=== PATIENT | female | born 1945 | race Caucasian/White ===

== ENCOUNTER → 2016-05-27 11:49 | Outpatient (CLI) | payer MEDICARE, OTHER ==
[2015-11-14 10:04] VITALS: BMI 35.5
[~2016-05-27 11:49] MED LIST: CALCIUM 600+D T1 TA1 PO; CO Q-10100 MG PO; GLUCOPHAGE1000 MG PO; LOTENSIN20 MG PO; LOTREL 10/20 CA1 CAP PO; PRAVACHOL40 MG PO; TOPROL XL100 MG PO
== END | disposition home or self-care (01) ==
LOC: D.CT 11:49
DX: R19.09 Other intra-abdominal and pelvic swelling, mass and lump (principal); R91.8 Other nonspecific abnormal finding of lung field

== ENCOUNTER 2016-07-05 05:07 | Day surgery (SDC) | payer MEDICARE, OTHER ==
[2016-07-03 09:57] LABS: HEMATOCRIT 43.4 % (36.0-48.0); HEMOGLOBIN 13.8 g/dL (12-16); MCH 27.2 pg (26.0-34.0); MCHC 31.8 g/dL (31.0-37.0); MCV 85.4 fL (80.0-100.0); MEAN PLATELET VOLUME 9.2 fL (7.4-10.4); RBC 5.08 10x6/uL (4.00-5.40); RDW 15.6 % (11.5-14.5); WBC 9.6 10x3/uL (4.8-10.8)
[2016-07-03 10:24] LABS: CALC OSMOLALITY 289 mosm/kg (275-300); CALCIUM 9.3 mg/dL (8.5-10.1); CHLORIDE - SERUM 104 mmol/L (98-107); CREATININE - SERUM 0.8 mg/dL (0.6-1.3); GLUCOSE 198 mg/dL (74-106); POTASSIUM - SERUM 3.9 mmol/L (3.5-5.1); SODIUM 142 mmol/L (136-145); UREA NITROGEN 15 mg/dL (7-18); eGFR NON AFRICAN AMERICAN 75 mL/min (90-120)
[~2016-07-05] VITALS: Ht 160 cm; Wt 89.4 kg
--- NOTE | ~2016-07-05 | OP ---
PATIENT NAME: CHILANGO ZAMUDIO MEDICAL RECORD: [id number] :45 LOCATION:D.OPS ADMISSION DATE: SURGEON: FABRICIO GUEVARA MD DATE OF OPERATION: 07/05/2016 PREOPERATIVE DIAGNOSIS: History of complex polyp of the rectum at 10 cm. POSTOPERATIVE DIAGNOSES: History of complex polyp of the rectum at 10 cm with significant regrowth of the polyp, it is now a 3.5 cm, somewhat pedunculated polyp. PROCEDURES: 1. Flexible proctoscopy. 2. Snare piecemeal polypectomy of the rectal polyp. 3. Cold endoscopic biopsies. 4. Ablation of the polypoid base with argon plasma minibus driver utilizing the right colon setting in the forced mode. 5. Submucosal endoscopic tattooing of tissue just adjacent to the polyps for easier identification in the future. ENDOSCOPIC COURSE: The patient was conveyed to the operating room electively on 07/05/2016. General anesthesia was induced by the anesthesia staff. The patient was placed in the Winn position. A digital rectal examination was performed. A colonoscope was inserted through the anus. It was easily advanced to the sigmoid colon. I withdrew to the polyp, which was easily identifiable. Multiple cold endoscopic biopsies were performed. I then advanced a snare. A piecemeal snare polypectomy was performed utilizing the cut setting and then the coag setting. This snare polypectomy removed about 80% of the polyp. Additional cold endoscopic biopsies were performed. I then utilized the argon plasma minibus driver to ablate any remaining polypoid tissue. The endoscopic clip was still identifiable and had not been dislodged since the patient's last endoscopy. For easier identification in the future, I advanced an endoscopic sclerotherapy needle and performed a submucosal injection of tissue just adjacent to the polypoid base. A total of 3 cc of Tamar ink was injected submucosally. The sclerotherapy needle was then removed. The endoscope was then removed. I will plan to see the patient in my office in 2-3 weeks. I will plan for her next colonoscopy with the argon plasma minibus driver to take place in 1 year. TRANSINT:[id number] Voice Confirmation ID: [id number] DOCUMENT ID: [id number] FABRICIO GUEVARA MD CC: FABRICIO DALTON DO [id number] DICTATION DATE: 07/05/16 0949 SCRUBBING MACHINE OPERATOR: 07/05/16 1948 [facility] 07/05/16 [facility] [address] [place] [address]
--- NOTE | ~2016-07-05 | HP ---
PATIENT: CHILANGO ZAMUDIO LUIS MEDICAL RECORD: [id number] ACCOUNT: [id number] LOCATION:UBALDO : 45 ADMISSION DATE: 07/05/16 HISTORY AND PHYSICAL EXAMINATION CHIEF COMPLAINT: Polyp. HISTORY OF PRESENT ILLNESS: The patient had a history of complex polyp in the rectum. It is complex due to its size and endoscopic appearance. Also, it is worrisome due to the fact that there was atypia present in the past and this was a low-grade atypia. I will plan for flexible proctoscopy with polypectomy and probably the patient will require ablation of a portion of the polyp with the argon plasma claim representative. The patient has no abdominal pain. No rectal bleeding. ALLERGIES: PENICILLIN AND PAXIL. HOME MEDICATIONS: Lotrel, Lotensin, glyburide, Glucophage, Toprol as well as Pravachol. PAST MEDICAL AND SURGICAL HISTORY: Hypertension, noninsulin-dependent diabetes mellitus, diet controlled, reflux, hypercholesterolemia. SOCIAL HISTORY: Nonsmoker. REVIEW OF SYSTEMS: Negative for CVA or seizures. Negative for renal disease or hepatitis. PHYSICAL EXAMINATION: GENERAL: The patient does not appear acutely ill. She does not appear chronically ill. VITAL SIGNS: Reviewed. HEAD: External ears appear normal. EYES: Extraocular movements are intact. NECK: Trachea is midline. CHEST: No intercostal retractions. PULMONARY: Nonlabored, no stridor. ABDOMEN: Nontender. IMPRESSION: History of complex polyp of the rectum. PLAN: Flexible proctoscopy. Polypectomy. Possible need for the argon plasma claim representative. TRANSINT:[id number] Voice Confirmation ID: [id number] DOCUMENT ID: [id number] HISTORY AND PHYSICAL [id number] CHILANGO ZAMUDOI ROBERT MD CC: FABRICIO DALTON DO [id number] DICTATION DATE: 07/05/16 0941 ROLLER MILL OPERATOR: 07/05/16 1557 [facility] 07/05/16 [facility] [address] [place] [id number]
[~2016-07-05 05:07] MED LIST changes: +GLYBURIDE5 M1 PO
[2016-07-05 07:08] VITALS: BP 176/76; Ht 160 cm; Wt 89.4 kg
== END 2016-07-05 11:20 | disposition home or self-care (01) ==
LOC: D.OPS 05:07 → D.PAN 08:00 → D.OPS 11:20
PROVIDERS: Anesthesiology
DX: K62.1 Rectal polyp (principal); I10 Essential (primary) hypertension; E11.9 Type 2 diabetes mellitus without complications; K21.9 Gastro-esophageal reflux disease without esophagitis; E78.00 Pure hypercholesterolemia, unspecified; Z88.0 Allergy status to penicillin; Z88.8 Allergy status to other drugs, medicaments and biological substances; Z79.84 Long term (current) use of oral hypoglycemic drugs; Z79.899 Other long term (current) drug therapy

== ENCOUNTER → 2016-12-02 08:28 | Outpatient (CLI) | payer MEDICARE, OTHER ==
[2016-07-05 07:08] VITALS: BMI 34.9
== END | disposition home or self-care (01) ==
LOC: D.CT 08:28
DX: R91.1 Solitary pulmonary nodule (principal)

== ENCOUNTER → 2017-01-20 14:38 | Outpatient (CLI) | payer MEDICARE, OTHER ==
[2016-07-05 07:08] VITALS: BMI 34.9
== END | disposition home or self-care (01) ==
LOC: D.MRI 14:38
DX: M25.361 Other instability, right knee (principal)

== ENCOUNTER 2017-10-01 07:55 | Day surgery (SDC) | payer MEDICARE, OTHER ==
[2017-09-29 11:56] LABS: HEMATOCRIT 41.2 % (36.0-48.0); HEMOGLOBIN 13.4 g/dL (12-16); MCHC 32.5 g/dL (31.0-37.0); MEAN PLATELET VOLUME 8.8 fL (7.4-10.4); RBC 4.79 10x6/uL (4.00-5.40); RDW 15.1 % (11.5-14.5); WBC 10.6 10x3/uL (4.8-10.8)
[2017-09-29 12:23] LABS: CALC OSMOLALITY 288 mosm/kg (275-300); CALCIUM 8.3 mg/dL (8.5-10.1); CARBON DIOXIDE 26.5 mmol/L (21.0-32.0); CHLORIDE - SERUM 107 mmol/L (98-107); CREATININE - SERUM 0.6 mg/dL (0.6-1.3); POTASSIUM - SERUM 3.8 mmol/L (3.5-5.1); SODIUM 144 mmol/L (136-145); UREA NITROGEN 15 mg/dL (7-18); eGFR NON AFRICAN AMERICAN > 90 mL/min (90-120)
[2017-09-29 12:30] LABS: GLUCOSE 121 mg/dL (74-106)
[~2017-10-01] VITALS: Ht 160 cm; Wt 87.5 kg
--- NOTE | ~2017-10-01 | OP ---
PATIENT NAME: CHILANGO ZAMUDIO MEDICAL RECORD: [id number] :45 LOCATION:D.OPS ADMISSION DATE: SURGEON: FABRICIO GUEVARA MD DATE OF OPERATION: 10/01/2017 PREOPERATIVE DIAGNOSIS: History of complex rectal polyp at 10 cm. POSTOPERATIVE DIAGNOSIS: History of complex rectal polyp at 10 cm with significant regrowth of the polyp. The regrowth measured 3.5 cm. PROCEDURE: Flexible proctoscopy with polypectomy utilizing endoscopic mucosal resection. SURGEON: Fabricio Guevara MD METAL PATTERN MAKER: None. BLOOD LOSS: Minimal. ANESTHESIA: General. COMPLICATIONS: None. The risks, possible complications, and alternatives to the procedure were explained to the patient. She elects to proceed. OPERATIVE COURSE: The patient was conveyed to the operating room electively on 10/01/2017. General anesthesia was induced by the anesthesia staff. The patient was placed in the Winn position. A digital rectal examination was performed. A colonoscope was inserted through the anus. It was easily advanced to the sigmoid colon. I slowly withdrew the endoscope. A combination of normal imaging and narrow band imaging were utilized. I identified the polyp. There had been significant regrowth. The tattoo was still present next to the polyp. I advanced a sclerotherapy needle. A submucosal injection underneath the polyp with epinephrine was performed. There was a good lift to the polyp. Utilizing an endoscopic snare, first with the coag setting and then with the cut setting a piecemeal snare polypectomy was performed. Portions of this polyp were grasped with endoscopic retrieval net and other portions were sucked out through the endoscope and into a polyp trap. I then performed some cold endoscopic biopsies at the base of the polyp. Essentially, about 95% of the polyp had been removed. The other 5% was ablated utilizing the argon plasma porter sample case with the right colon setting in the forced mode. The endoscope was then withdrawn under direct vision. I am going to dismiss the patient home on Flagyl as she is at risk for a post-polypectomy syndrome. I will plan for her next flexible proctoscopy with the argon plasma porter sample case to take place in 1 year. TRANSINT:[id number] Voice Confirmation ID: [id number] DOCUMENT ID: [id number] OPERATIVE REPORT [id number] CHILANGO ZAMUDIO ROBERT MD at 1240 CC: GELY DE LA TORRE MD, Laura HAIRSTON ROBERT [id number] DICTATION DATE: 10/01/17 1429 ASSOCIATE BROKER: 10/01/17 1518 [facility] 10/01/17 [id number] [place] [address]
[2017-10-01 11:04] VITALS: BP 165/80; Ht 160 cm; Wt 87.5 kg
== END 2017-10-01 15:00 | disposition home or self-care (01) ==
LOC: D.OPS 07:55 → D.PAN 10:15 → D.OPS 15:00
PROVIDERS: Anesthesiology
DX: D12.8 Benign neoplasm of rectum (principal); Z01.812 Encounter for preprocedural laboratory examination

== ENCOUNTER → 2017-11-21 07:21 | Outpatient (CLI) | payer MEDICARE, OTHER ==
[2017-10-01 11:04] VITALS: BMI 34.2
== END | disposition home or self-care (01) ==
LOC: D.CT 07:21
DX: R91.1 Solitary pulmonary nodule (principal)

== ENCOUNTER → 2019-10-05 07:04 | Day surgery (SDC) | payer MEDICARE, BC ==
[~2019-10-05] VITALS: Ht 160 cm; Wt 88.6 kg
--- NOTE | ~2019-10-05 | OP ---
PATIENT NAME: CHILANGO ZAMUDIO MEDICAL RECORD: [id number] :45 LOCATION:D.OPS ADMISSION DATE: SURGEON: TEOFILO GUEVARA MD DATE OF OPERATION: 10/05/2019 PREOPERATIVE DIAGNOSIS: Recurrent rectal polyp at 10 cm, tattooed. POSTOPERATIVE DIAGNOSES: 1. Recurrent rectal polyp at 10 cm, tattooed with no evidence of persistence or regrowth of the rectal polyp. 2. New sessile 9 mm polyp found elsewhere in the colon. PROCEDURES: 1. Total colonoscopy to cecum. 2. Hot biopsy forceps polypectomies times 1. SURGEON: Teofilo Guevara MD COMPUTER SYSTEMS DESIGNER: None. BLOOD LOSS: Minimal. ANESTHESIA: IV sedation. COMPLICATIONS: None. The risks, possible complications and alternatives to the procedure were explained to the patient. She elects to proceed. Discussion specifically included, but was not limited to, bleeding requiring emergency reoperation, infection, endoscopic perforation, as well as a possible need for endoscopic procedures sometime in the future. ENDOSCOPIC COURSE: The patient was conveyed to endoscopy suite electively on 10/05/2019. IV sedation was induced by the anesthesia staff. The patient was placed in the Winn position. A digital rectal examination was performed. A colonoscope was inserted through the anus. It was easily advanced to the cecum. The prep was adequate. Upon withdrawal, I irrigated and aspirated extensively. I dragged the folds. A combination of normal imaging and narrow band imaging were utilized. I identified a colon polyp and this polyp was removed in its entirety utilizing the hot biopsy forceps polypectomy technique. I withdrew into the rectum. The tattoo was easily identifiable. I looked around for any recurrent or persistent rectal mass or polyp. A retroflexed view was obtained in the rectum. I then unretroflexed the scope and removed it under direct vision. As there has been no regrowth of this recurrent rectal polyp, I am going to recommend that her next colonoscopy take place in 3 years. TRANSINT:[id number] Voice Confirmation ID: [id number] DOCUMENT ID: [id number] OPERATIVE REPORT [id number] CHILANGO ZAMUDIO TEOFILO GUEVARA MD CC: [id number] DICTATION DATE: 10/05/19 1629 ELEVATOR ERECTOR: 10/06/19 0205 [facility] 10/05/19 [place] [address]
--- NOTE | ~2019-10-05 | HP ---
PATIENT: CHILANGO ZAMUDIO MEDICAL RECORD: [id number] ACCOUNT: [id number] LOCATION:UBALDO : 45 ADMISSION DATE: 10/05/19 PCP: FABRICIO DALTON DO HISTORY AND PHYSICAL EXAMINATION PRINCIPAL DIAGNOSIS: History of recurrent polyp at 10 cm, which was a tubulovillous adenoma. The patient has had no abdominal pain. No rectal bleeding. ALLERGIES: PENICILLIN AND PAXIL. HOME MEDICATIONS: Please see the nursing list. PAST MEDICAL AND SURGICAL HISTORY: Hand tremors as well as anxiety, urinary incontinence, colon polyps, noninsulin-dependent diabetes mellitus, and also hypertension. Lens implants. REVIEW OF SYSTEMS: Negative for angina or myocardial infarction. PHYSICAL EXAMINATION: GENERAL: The patient does not appear acutely ill. EARS: External ears appear normal. EYES: Extraocular movements are intact. NECK: Trachea is midline. CHEST: No intercostal retractions. PULMONARY: Nonlabored, no stridor. 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 PLAN: Colonoscopy with polypectomy. TRANSINT:[id number] Voice Confirmation ID: [id number] DOCUMENT ID: [id number] FABRICIO GUEVARA MD CC: FABRICIO DALTON [id number] DICTATION DATE: 10/05/19 1028 MENTAL HEALTH CASE MANAGER: 10/05/19 1044 [facility] [address] [place] [address]
[2019-10-05 07:38] LABS: HEMATOCRIT 43.3 % (36.0-48.0); HEMOGLOBIN 13.5 g/dL (12-16); MCH 27.2 pg (26.0-34.0); MCHC 31.2 g/dL (31.0-37.0); MCV 87.1 fL (80.0-100.0); MEAN PLATELET VOLUME 9.1 fL (7.4-10.4); RBC 4.97 10x6/uL (4.00-5.40); RDW 14.8 % (11.5-14.5); WBC 9.4 10x3/uL (4.8-10.8)
[2019-10-05 07:47] LABS: ANION GAP 13.1 mmol/L (8-16); CALCIUM 8.8 mg/dL (8.5-10.1); CARBON DIOXIDE 26.4 mmol/L (21.0-32.0); CREATININE - SERUM 0.8 mg/dL (0.6-1.3); POTASSIUM - SERUM 3.5 mmol/L (3.5-5.1)
[2019-10-05 07:50] VITALS: BP 191/81; Ht 160 cm; Wt 88.6 kg
--- NOTE | 2019-10-05 12:39 | NUR ---
1220 DISCHARGED HOME. TAKEN OUT VIA W/C AND ASSISTED TO CAR WITH . ADVISED TO CALL OR COME BACK IF ANY PROBLEMS.
== END | disposition home or self-care (01) ==
LOC: D.OPS 07:04
PROVIDERS: Anesthesiology; ATTEND Surgery
DX: K63.5 Polyp of colon (principal); Z86.010 Personal history of colon polyps